=== PATIENT | female | born 1935 | race African-American/Black ===

== ENCOUNTER 2018-04-16 08:28 | Emergency (ER) | payer OTHER ==
[~2018-04-16] VITALS: Ht 167.6 cm; Wt 104.3 kg
--- NOTE | ~2018-04-16 | EKG ---
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 : 1935 Requested By: Michelle Mcelroy Order Number: [id number] MD: Aston Padron Measurements Intervals [place] Rate: 61 P: 64 ME: 183 QRS: 21 QRSD: 112 T: 50 QT: 447 QTc: 451 Interpretive Statements Sinus rhythm Atrial premature complex Nonspecific intraventricular conduction delay No previous ECG available for comparison Electronically Signed On 04-16-2018 16:42:53 CDT by Aston Padron [email or web address] <ELECTRONICALLY SIGNED> By: Aston Padron MD, [facility] 04/16/18 1642 1035 1035 Aston Padron MD, FACC /EPI
[2018-04-16 09:24] LABS: ABSOLUTE NEUTROPHILS 3.2 thou/uL (1.4-8.2); BASOPHILS 0.3 % (0.0-2.0); EOSINOPHILS 2.9 % (0.0-3.0); HEMATOCRIT 37.3 % (37.0-47.0); HEMOGLOBIN 12.3 gm/dL (12.0-15.0); LYMPHOCYTES 32.5 % (24.0-44.0); MCH 28.4 pg (26.0-34.0); MCHC 33.1 g/dL (28.0-37.0); MCV 85.9 fL (80.0-100.0); MONOCYTES 9.7 % (1.0-8.0); PLATELET COUNT 159 thou/uL (150-400); POLYS 54.6 % (36.0-66.0); RBC 4.34 mil/uL (4.20-5.00); RDW 14.7 % (10.5-14.5); WBC 5.9 thou/uL (4.0-11.0)
[2018-04-16] MEDS ORDERED: COZAAR 25 MG TA25 M2 PO (09:31)
[2018-04-16] MEDS ORDERED: LASIX 20 MG TAB20 MG PO (09:32)
[2018-04-16] MEDS ORDERED: KLOR-CON 1010 MEQ PO (09:32)
[2018-04-16] MEDS ORDERED: MAXZIDE-25 MG1 EACH PO (09:32)
[2018-04-16 09:33] LABS: ANION GAP 8 mmol/L (7-16); BUN 23 mg/dL (7-18); CALCIUM 10.2 mg/dL (8.5-10.1); CHLORIDE 101 mmol/L (98-107); CO2 29 mmol/L (21-32); CREATININE 1.4 mg/dL (0.6-1.0); GLUCOSE 184 mg/dL (74-106); POTASSIUM 4.3 mmol/L (3.5-5.1); SODIUM 138 mmol/L (136-145)
[2018-04-16] MEDS ORDERED: UNICOMPLEX M TA1 TA1 PO (09:33)
[2018-04-16] MEDS ORDERED: ASPIR 8181 MG PO (09:33)
[2018-04-16 09:41] LABS: ALBUMIN 3.8 g/dL (3.4-5.0); DIRECT BILIRUBIN 0.2 mg/dL (<0.1-0.3); LIPASE 134 U/L (73-393); SGOT 19 U/L (15-37); SGPT 20 U/L (30-65); TOTAL BILIRUBIN 0.7 mg/dL (<0.1-1.0); TOTAL PROTEIN 8.4 g/dL (6.4-8.2); TROPONIN-I <0.06 ng/mL (<0.06)
[2018-04-16 11:13] LABS: URINE BILIRUBIN NEGATIVE (Negative); URINE BLOOD NEGATIVE (Negative); URINE CLARITY CLEAR; URINE COLOR YELLOW; URINE GLUCOSE-RANDOM* NEGATIVE (Negative); URINE KETONES NEGATIVE (Negative); URINE LEUKOCYTES-REFLEX NEGATIVE (Negative); URINE NITRITE-REFLEX NEGATIVE (Negative); URINE PROTEIN (DIPSTICK) NEGATIVE (Negative); URINE UROBILINOGEN 0.2 E.U./dl (0.2-1.0)
[2018-04-16 12:43] VITALS: BP 140/58
== END 2018-04-16 12:47 | disposition home or self-care (01) ==
LOC: ER 08:28
PROVIDERS: Emergency Medicine
DX: R53.1 Weakness (principal); R42 Dizziness and giddiness; I10 Essential (primary) hypertension; Z86.711 Personal history of pulmonary embolism

== ENCOUNTER 2019-06-13 22:38 | Emergency (ER) | payer OTHER ==
[~2019-06-13] VITALS: Ht 170.2 cm; Wt 105.2 kg
[~2019-06-13 22:38] MED LIST: ASPIR 8181 MG PO; COZAAR 25 MG TA25 M2 PO; KLOR-CON 1010 MEQ PO; LASIX 20 MG TAB20 MG PO; MAXZIDE-25 MG1 EACH PO; UNICOMPLEX M TA1 TA1 PO
[2019-06-13] MEDS ORDERED: CARVEDILOL12.5 MG PO (22:51)
[2019-06-13] MEDS ORDERED: NORVASC5 M1 PO (22:51)
[2019-06-13] MEDS ORDERED: LOSARTAN POTAS100 MG PO (22:52)
[2019-06-13 23:42] LABS: ABSOLUTE NEUTROPHILS 4.4 thou/uL (1.4-8.2); BASOPHILS 0.4 % (0.0-2.0); EOSINOPHILS 2.7 % (0.0-3.0); HEMOGLOBIN 12.8 gm/dL (12.0-15.0); LYMPHOCYTES 29.3 % (24.0-44.0); MCH 27.9 pg (26.0-34.0); MCHC 32.1 g/dL (28.0-37.0); MCV 87.1 fL (80.0-100.0); MONOCYTES 10.9 % (1.0-8.0); PLATELET COUNT 158 thou/uL (150-400); POLYS 56.7 % (36.0-66.0); RBC 4.59 mil/uL (4.20-5.00); WBC 7.7 thou/uL (4.0-11.0)
[2019-06-13 23:50] LABS: ANION GAP 8 mmol/L (7-16); BUN 23 mg/dL (7-18); CALCIUM 9.2 mg/dL (8.5-10.1); CHLORIDE 101 mmol/L (98-107); CO2 31 mmol/L (21-32); CREATININE 1.3 mg/dL (0.6-1.0); GLUCOSE 114 mg/dL (74-106); POTASSIUM 4.7 mmol/L (3.5-5.1); SODIUM 140 mmol/L (136-145)
[2019-06-14] LABS: ALBUMIN 3.9 g/dL (3.4-5.0); LIPASE 206 U/L (73-393); SGOT 28 U/L (15-37); SGPT 19 U/L (30-65); TOTAL BILIRUBIN 0.6 mg/dL (<0.1-1.0); TOTAL PROTEIN 8.6 g/dL (6.4-8.2); TROPONIN-I <0.06 ng/mL (<0.06)
[2019-06-14] MEDS ORDERED: CATAPRES0.1 MG PO (00:44)
[2019-06-14] MEDS ORDERED: ONDANSETRON ODT8 MG PO (00:46)
[2019-06-14 01:35] VITALS: BP 181/78
--- NOTE | 2019-06-14 08:36 | EKG ---
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[employer] : 1935 Requested By: Newton Wang Order Number: [id number] MD: Aston Padron Measurements Intervals [place] Rate: 70 P: 48 TX: 140 QRS: 25 QRSD: 94 T: 51 QT: 436 QTc: 471 Interpretive Statements Sinus arrhythmia LVH by voltage Compared to ECG 04/16/2018 10:35:16 Left ventricular hypertrophy now present Electronically Signed On 06-14-2019 8:36:37 [employer]IP[employer] by Aston Padron [email or web address] <ELECTRONICALLY SIGNED> By: Aston Padron MD, [facility] 06/14/19 0836 2302 01 Aston Padron MD, FACC /EPI
== END 2019-06-14 01:35 | disposition home or self-care (01) ==
LOC: ER 22:38
PROVIDERS: Emergency Medicine
DX: I10 Essential (primary) hypertension (principal); R11.2 Nausea with vomiting, unspecified; R60.0 Localized edema; E66.9 Obesity, unspecified; Z68.36 Body mass index [BMI] 36.0-36.9, adult; Z90.01 Acquired absence of eye; Z86.711 Personal history of pulmonary embolism; Z88.2 Allergy status to sulfonamides

== ENCOUNTER 2021-06-02 01:19 | Emergency (ER) | payer OTHER ==
[~2021-06-02] VITALS: Ht 170.2 cm; Wt 104.3 kg
[~2021-06-02 01:19] MED LIST changes: +CARVEDILOL12.5 MG PO; +CATAPRES0.1 MG PO; +LOSARTAN POTAS100 MG PO; +NORVASC5 M1 PO; +ONDANSETRON ODT8 MG PO
[2021-06-02] MEDS ORDERED: CLONIDINE HCL0.1 MG PO (01:31)
[2021-06-02] MEDS ORDERED: CARVEDILOL25 MG PO (01:31)
[2021-06-02] MEDS ORDERED: FUROSEMIDE 40 M40 M1 PO (01:32)
[2021-06-02] MEDS ORDERED: HYDRALAZINE 2525 M1 PO (01:32)
[2021-06-02] MEDS ORDERED: TIMOLOL MALEATE5 M1 OPHTHALMIC (01:32)
[2021-06-02] MEDS ORDERED: ZIRGAN5 GM OPHTHALMIC (01:32)
[2021-06-02 03:57] VITALS: BP 162/83
== END 2021-06-02 04:23 | disposition home or self-care (01) ==
LOC: ER 01:19
PROVIDERS: Emergency Medicine
DX: U07.1 COVID-19 (principal); I10 Essential (primary) hypertension; Z79.891 Long term (current) use of opiate analgesic; Z79.899 Other long term (current) drug therapy; Z79.1 Long term (current) use of non-steroidal anti-inflammatories (NSAID); Z88.2 Allergy status to sulfonamides

== ENCOUNTER 2021-08-21 16:07 | Emergency (ER) | payer OTHER ==
[~2021-08-21] VITALS: Ht 167.6 cm; Wt 102.1 kg
[~2021-08-21 16:07] MED LIST changes: +CARVEDILOL25 MG PO; +CLONIDINE HCL0.1 MG PO; +FUROSEMIDE 40 M40 M1 PO; +HYDRALAZINE 2525 M1 PO; +TIMOLOL MALEATE5 M1 OPHTHALMIC; +ZIRGAN5 GM OPHTHALMIC
[2021-08-21 16:45] LABS: HEMATOCRIT 38.7 % (37.0-47.0); HEMOGLOBIN 12.3 gm/dL (12.0-15.0); MCHC 31.8 g/dL (28.0-37.0); RBC 4.56 mil/uL (4.20-5.00); RDW 15.7 % (10.5-14.5); WBC 5.8 thou/uL (4.0-11.0)
[2021-08-21 16:57] LABS: CREATININE 1.1 mg/dL (0.6-1.0); POTASSIUM 4.5 mmol/L (3.5-5.1)
[2021-08-21 17:02] LABS: ALBUMIN 3.9 g/dL (3.4-5.0); TOTAL BILIRUBIN 0.7 mg/dL (0.2-1.0); TOTAL PROTEIN 8.3 g/dL (6.4-8.2)
[2021-08-21 17:12] LABS: URINE BILIRUBIN NEGATIVE (Negative); URINE BLOOD TRACE (Negative); URINE CLARITY CLEAR; URINE COLOR YELLOW; URINE GLUCOSE-RANDOM* NEGATIVE (Negative); URINE KETONES NEGATIVE (Negative); URINE LEUKOCYTES-REFLEX TRACE (Negative); URINE PROTEIN (DIPSTICK) NEGATIVE (Negative); URINE UROBILINOGEN 0.2 E.U./dl (0.2-1.0)
[2021-08-21 17:13] LABS: URINE NITRITE-REFLEX POSITIVE (Negative)
[2021-08-21 17:22] LABS: SQUAMOUS 4-10 Moderate /LPF (0-3); URINE RBC 1-2 Rare /HPF (NONE SEEN); URINE WBC-REFLEX 0-5 Rare /HPF (0-5)
[2021-08-21 17:23] LABS: BACTERIA-REFLEX >30 Many /HPF (None Seen); CASTS None Seen /LPF (None Seen); CRYSTALS None Seen /LPF (None Seen)
[2021-08-21] MEDS ORDERED: CEPHALEXIN500 MG PO (20:25)
[2021-08-21 21:01] VITALS: BP 168/61
--- NOTE | 2021-08-22 07:06 | EKG ---
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: : 1935 Requested By: Jossie Prescott Order Number: [id number] MD: Gavin Tello Measurements Intervals [place] Rate: 59 P: 69 MS: 157 QRS: 10 QRSD: 89 T: 45 QT: 452 QTc: 448 Interpretive Statements Sinus rhythm Probable left atrial enlargement Low voltage, precordial leads Compared to ECG 06/13/2019 23:02:11 Low QRS voltage now present Sinus arrhythmia no longer present Left ventricular hypertrophy no longer present Electronically Signed On 08-22-2021 7:06:26 [employer]ING [employer] OPER[employer] by Gavin Tello [email or web address] <ELECTRONICALLY SIGNED> By: Gavin Tello MD, [facility] 08/22/21705 41 41 Gavin Tello MD, [facility] /EPI
== END 2021-08-21 21:02 | disposition home or self-care (01) ==
LOC: ER 16:07
PROVIDERS: Nurse Practitioner Family
DX: N39.0 Urinary tract infection, site not specified (principal); R22.43 Localized swelling, mass and lump, lower limb, bilateral; I10 Essential (primary) hypertension; Z88.2 Allergy status to sulfonamides; Z79.899 Other long term (current) drug therapy